=== PATIENT | female | born 1930 | race African-American/Black ===

== ENCOUNTER 2021-11-01 10:31 | Inpatient (IN) ==
[2021-11-01] MEDS ORDERED: SODIUM CHLORIDE 0.9% 500 ML IV STA ×2 (11:34→14:00)
[2021-11-01 11:52] LABS: PT Patient Result 11.4 SECS (10.5-12.0)
[2021-11-01 11:54] LABS: Basophils % 0.1 % (0.0-0.8); Eosinophils # 0.2 10*3/uL (0.0-0.87); Eosinophils % 0.4 % (0.00-10.9); Hematocrit 37.7 VOL% (35.7-47.0); Hemoglobin 12.1 GM/DL (12.0-16.0); Immature Granulocytes % 13.5 %; Lymphocytes % 1.7 % (21.3-54.2); Mean Corpuscular HGB Conc 32.1 GM/DL (32-36); Monocytes # 1.1 10*3/uL (0.11-0.8); Monocytes % 1.9 % (1.7-12.7); Neutrophils % 82.4 % (38.7-73.9); Platelet Count 106 T/CUMM (130-400); Red Cell Distribution Width 16.3 % (9.3-17.3)
[2021-11-01 11:57] LABS: Mean Platelet Volume 13.3 FL (9.6-12.0)
[2021-11-01 12:00] LABS: Albumin 2.2 G/DL (3.4-5.0); Bilirubin,Total 2.4 MG/DL (0.20-1.00); Calcium 10.6 MG/DL (8.5-10.1); Osmolality,Calculated 323.7 MOS/KG (273-304); Potassium 4.5 MMOL/L (3.5-5.1); Total Protein 6.3 G/DL (6.4-8.2)
[2021-11-01 12:08] LABS: Arterial Base Excess iSTAT 3 MMOL/L (-2.5-2.5); Arterial Bicarbonate iSTAT 28.3 MMOL/L (20-26); Arterial O2 Saturation iSTAT 100 % (95-100); Arterial PCO2 iSTAT 47 MM HG (35-48); Arterial PO2 iSTAT 221 MM HG (80-95); Arterial Total CO2 iSTAT 30 MMO/L (23-27)
[2021-11-01] MEDS ORDERED: VANCOMYCIN INJ 1,000 MG in SODIUM CHLORIDE 0.9% 250 ML IV STA (12:29)
[2021-11-01] MEDS ORDERED: PIPERACILLIN/TAZOBACTAM 3,375 MG in SODIUM CHLORIDE 0.9% 100 ML IV STA (12:29)
[2021-11-01 12:34] LABS: Band Neutrophils 5 % (0-10); Burr Cells Slight; Hypochromia Slight; Lymphocytes 1 % (20-55); Metamyelocytes 3 %; Target Cells Slight; Total Cells Counted 100
[2021-11-01 12:35] LABS: Microcytosis Slight; Platelet Estimate Decreased; Schistocytes Slight
[2021-11-01] MEDS ORDERED: ETOMIDATE 20 MG/10 ML VIAL IV ONE (12:46)
[2021-11-01] MEDS ORDERED: ROCURONIUM 100 MG/10 ML VIAL IV ONE (12:47)
[2021-11-01] MEDS ORDERED: ROCURONIUM 100 MG/10 ML VIAL IV STA (12:49)
[2021-11-01] MEDS ORDERED: ETOMIDATE 20 MG/10 ML VIAL IV STA (12:49)
[2021-11-01 13:45] LABS: Bacteria,Urine Many /HPF (Few); Mucus,Urine Occasional /LPF (Occasional); RBC,Urine 9 /HPF (0-4)
[2021-11-01 13:49] LABS: Glucose,Urine (UA) Negative (Negative); Ketones,Urine Negative (Negative); Nitrite,Urine Negative (Negative); Protein,Urine 100 mg/dL (Negative); Urine Appearance Clear (Clear); Urine Color Yellow (Yellow); Urine pH 5.5 (4.5-8.0)
[2021-11-01 13:50] LABS: Bilirubin,Urine Negative (Negative); Blood, Urine Large mg/dL (Negative)
[2021-11-01] MEDS ORDERED: NOREPINEPHRINE 8 MG in SODIUM CHLORIDE 0.9% 242 ML IV PRN (14:00)
[2021-11-01] MEDS ORDERED: MIDAZOLAM 100 MG in SODIUM CHLORIDE 0.9% 80 ML IV PRN (14:00)
[2021-11-01] MEDS ORDERED: NOREPINEPHRINE 4 MG/4 ML VIAL IV ONE ×2 (14:01→16:21)
[2021-11-01] MEDS ORDERED: ALBUTEROL 2.5 MG/3 ML NEB RESP TX PRN (14:04)
[2021-11-01] MEDS ORDERED: AZITHROMYCIN INJ 500 MG in SODIUM CHLORIDE 0.9% 250 ML IV ONE (14:06)
[2021-11-01] MEDS ORDERED: MORPHINE 2 MG/1 ML SYRINGE IV PRN (14:06)
[2021-11-01] MEDS ORDERED: ONDANSETRON 4 MG/2 ML VIAL IV PRN (14:06)
[2021-11-01 14:55] LABS: Ferritin 563.7 ng/mL (8-252)
[2021-11-01] MEDS: ENOXAPARIN 30 MG/0.3 ML SYRINGE SUBCUT SCH (16:26)
[2021-11-01] MEDS: SODIUM CHLORIDE 0.9% 1,000 ML IV SCH ×2 (16:28→23:59)
[2021-11-01] MEDS: DEXAMETHASONE 4 MG/1 ML VIAL IV SCH (16:29)
[2021-11-01] MEDS ORDERED: GLUCAGON 1 MG VIAL IM PRN (16:50)
[2021-11-01] MEDS: DEXTROSE 10% 250 ML BAG IV PRN ×2 (18:23→19:00)
[2021-11-01] MEDS: INSULIN REGULAR 100 UNIT/ML SUBCUT SCH ×2 (18:23→23:52)
[2021-11-01] MEDS ORDERED: DEXTROSE 50% 25 GM/50 ML VIAL IV PRN (18:42)
[2021-11-01] MEDS: MEROPENEM 500 MG in SODIUM CHLORIDE 0.9% 100 ML IV SCH (20:43)
[2021-11-01] MEDS: ASCORBIC ACID 500 MG TABLET PO SCH (20:57)
[2021-11-01] MEDS ORDERED: FAMOTIDINE 20 MG TABLET PO SCH (21:00)
[2021-11-02 04:40] LABS: Arterial Base Excess iSTAT -3 MMOL/L (-2.5-2.5); Arterial Bicarbonate iSTAT 22.8 MMOL/L (20-26); Arterial O2 Saturation iSTAT 98 % (95-100); Arterial PCO2 iSTAT 41 MM HG (35-48); Arterial PO2 iSTAT 106 MM HG (80-95); Arterial Total CO2 iSTAT 24 MMO/L (23-27); Arterial pH iSTAT 7.358 (7.35-7.45)
[2021-11-02] MEDS: INSULIN REGULAR 100 UNIT/ML SUBCUT SCH ×3 (05:18→18:07)
[2021-11-02] MEDS: SODIUM CHLORIDE 0.9% 1,000 ML IV SCH ×2 (06:35→09:31)
[2021-11-02 07:22] LABS: Basophils % 0.1 % (0.0-0.8); Eosinophils # 0.2 10*3/uL (0.0-0.87); Eosinophils % 0.3 % (0.00-10.9); Hematocrit 30.9 VOL% (35.7-47.0); Hemoglobin 10.4 GM/DL (12.0-16.0); Immature Granulocytes % 7.9 %; Immature Granulocytes Absolute 3.63 #; Lymphocytes # 0.8 10*3/uL (1.4-4.0); Lymphocytes % 1.7 % (21.3-54.2); Mean Corpuscular HGB Conc 33.7 GM/DL (32-36); Mean Corpuscular Volume 79.8 FL (87-102); Monocytes % 2.2 % (1.7-12.7); Neutrophils % 87.8 % (38.7-73.9); Platelet Count 85 T/CUMM (130-400); Red Blood Count 3.87 MC/CUMM (3.8-5.5); Red Cell Distribution Width 16.3 % (9.3-17.3)
[2021-11-02 07:26] LABS: White Blood Count 46.2 T/CUMM (4-12)
[2021-11-02 07:39] LABS: Band Neutrophils 2 % (0-10); Hypochromia Slight; Microcytosis Slight; Platelet Estimate Decreased; Total Cells Counted 100
[2021-11-02 07:49] LABS: Osmolality,Calculated 330.8 MOS/KG (273-304)
[2021-11-02] MEDS: DEXAMETHASONE 4 MG/1 ML VIAL IV SCH (08:03)
[2021-11-02] MEDS: FAMOTIDINE 20 MG TABLET PER TUBE SCH (08:08)
[2021-11-02] MEDS: AZITHROMYCIN 250 MG TABLET PO SCH (08:08)
[2021-11-02] MEDS: ASCORBIC ACID 500 MG TABLET PO SCH ×2 (08:08→20:29)
[2021-11-02 08:35] LABS: Sedimentation Rate-Westergren 45 MM/HR (0-30)
[2021-11-02] MEDS: DEXTROSE 5% NACL 0.45% 1,000 ML IV SCH ×3 (11:14→19:14)
[2021-11-02] MEDS: ENOXAPARIN 30 MG/0.3 ML SYRINGE SUBCUT SCH (14:45)
[2021-11-02] MEDS ORDERED: hydrALAZINE 20 MG/1 ML VIAL IV PRN (14:56)
[2021-11-02] MEDS: MEROPENEM 500 MG in SODIUM CHLORIDE 0.9% 100 ML IV SCH (19:39)
[2021-11-03] MEDS: INSULIN REGULAR 100 UNIT/ML SUBCUT SCH ×5 (00:25→23:25)
[2021-11-03] MEDS: DEXTROSE 5% NACL 0.45% 1,000 ML IV SCH ×3 (03:25→19:50)
[2021-11-03 03:32] LABS: ABG Base Excess -1.8 MMOL/L (-2.5-2.5); ABG HCO3 22.9 MMOL/L (20-26); ABG Oxygen Saturation 98.8 % (95-100); ABG PCO2 44.6 MM HG (35-48); ABG TCO2 21.8 MMOL/L (23-27)
[2021-11-03 05:41] LABS: Calcium 8.5 MG/DL (8.5-10.1); Osmolality,Calculated 314.3 MOS/KG (273-304); Potassium 4.8 MMOL/L (3.5-5.1)
[2021-11-03 06:25] LABS: Basophils # 0.1 10*3/uL (0.0-0.2); Basophils % 0.3 % (0.0-0.8); Hematocrit 33.1 VOL% (35.7-47.0); Hemoglobin 10.5 GM/DL (12.0-16.0); Immature Granulocytes % 3.3 %; Immature Granulocytes Absolute 1.33 #; Lymphocytes # 1.2 10*3/uL (1.4-4.0); Lymphocytes % 2.9 % (21.3-54.2); Mean Corpuscular HGB Conc 31.7 GM/DL (32-36); Mean Corpuscular Volume 82.5 FL (87-102); Monocytes # 1.8 10*3/uL (0.11-0.8); Monocytes % 4.3 % (1.7-12.7); Neutrophils % 89.2 % (38.7-73.9); Platelet Count 91 T/CUMM (130-400); Red Blood Count 4.01 MC/CUMM (3.8-5.5); Red Cell Distribution Width 17.1 % (9.3-17.3)
[2021-11-03 06:31] LABS: White Blood Count 40.3 T/CUMM (4-12)
[2021-11-03 06:46] LABS: Band Neutrophils 1 % (0-10); Lymphocytes 3 % (20-55); Platelet Estimate Decreased; Total Cells Counted 100
[2021-11-03 06:47] LABS: Hypochromia Slight; Microcytosis Slight
[2021-11-03] MEDS: DEXAMETHASONE 4 MG/1 ML VIAL IV SCH (08:13)
[2021-11-03] MEDS: AZITHROMYCIN 250 MG TABLET PO SCH (08:14)
[2021-11-03] MEDS: FAMOTIDINE 20 MG TABLET PER TUBE SCH (08:14)
[2021-11-03] MEDS: ASCORBIC ACID 500 MG TABLET PO SCH ×2 (08:14→20:48)
[2021-11-03] MEDS: INSULIN GLARGINE 100 UNIT/ML SUBCUT SCH (08:22)
[2021-11-03 10:29] LABS: White Blood Count 57.9 T/CUMM (4-12)
[2021-11-03] MEDS: ENOXAPARIN 30 MG/0.3 ML SYRINGE SUBCUT SCH (16:25)
[2021-11-03] MEDS: MEROPENEM 500 MG in SODIUM CHLORIDE 0.9% 100 ML IV SCH (20:48)
[2021-11-04 04:49] LABS: ABG HCO3 24.4 MMOL/L (20-26); ABG PCO2 41.8 MM HG (35-48); ABG PH 7.385 (7.35-7.45); ABG TCO2 22.7 MMOL/L (23-27)
[2021-11-04 04:50] LABS: Basophils # 0.1 10*3/uL (0.0-0.2); Basophils % 0.4 % (0.0-0.8); Hematocrit 37.1 VOL% (35.7-47.0); Hemoglobin 11.7 GM/DL (12.0-16.0); Immature Granulocytes % 5.8 %; Immature Granulocytes Absolute 1.91 #; Lymphocytes # 1.8 10*3/uL (1.4-4.0); Lymphocytes % 5.4 % (21.3-54.2); Mean Corpuscular HGB Conc 31.5 GM/DL (32-36); Mean Corpuscular Volume 83.4 FL (87-102); Monocytes # 1.8 10*3/uL (0.11-0.8); Monocytes % 5.3 % (1.7-12.7); NRBC # 0.02 10*3/uL; Neutrophils % 83.1 % (38.7-73.9); Platelet Count 60 T/CUMM (130-400); Red Blood Count 4.45 MC/CUMM (3.8-5.5); Red Cell Distribution Width 17.2 % (9.3-17.3); White Blood Count 32.9 T/CUMM (4-12)
[2021-11-04 05:09] LABS: Calcium 8.8 MG/DL (8.5-10.1); Osmolality,Calculated 301.5 MOS/KG (273-304); Potassium 4.8 MMOL/L (3.5-5.1)
[2021-11-04] MEDS: INSULIN REGULAR 100 UNIT/ML SUBCUT SCH ×4 (05:13→23:52)
[2021-11-04 05:15] LABS: Band Neutrophils 2 % (0-10); Hypochromia Slight; Lymphocytes 6 % (20-55); Microcytosis Slight; Platelet Estimate Decreased; Total Cells Counted 100
[2021-11-04] MEDS: DEXTROSE 5% NACL 0.45% 1,000 ML IV SCH ×2 (05:22→15:16)
[2021-11-04] MEDS: FAMOTIDINE 20 MG TABLET PER TUBE SCH (08:13)
[2021-11-04] MEDS: ASCORBIC ACID 500 MG TABLET PO SCH ×2 (08:13→20:22)
[2021-11-04] MEDS: DEXAMETHASONE 4 MG/1 ML VIAL IV SCH (08:13)
[2021-11-04] MEDS: INSULIN GLARGINE 100 UNIT/ML SUBCUT SCH (08:13)
[2021-11-04] MEDS: AZITHROMYCIN 250 MG TABLET PO SCH (08:13)
[2021-11-04 10:26] LABS: Arterial Base Excess iSTAT 0 MMOL/L (-2.5-2.5); Arterial Bicarbonate iSTAT 25.2 MMOL/L (20-26); Arterial O2 Saturation iSTAT 98 % (95-100); Arterial PCO2 iSTAT 44 MM HG (35-48); Arterial PO2 iSTAT 111 MM HG (80-95); Arterial Total CO2 iSTAT 27 MMO/L (23-27); Arterial pH iSTAT 7.365 (7.35-7.45)
[2021-11-04] MEDS: cefTRIAXone 1,000 MG in SODIUM CHLORIDE 0.9% 100 ML IV SCH (15:16)
[2021-11-05 04:31] LABS: Arterial Base Excess iSTAT 2 MMOL/L (-2.5-2.5); Arterial Bicarbonate iSTAT 26.3 MMOL/L (20-26); Arterial O2 Saturation iSTAT 94 % (95-100); Arterial PCO2 iSTAT 38 MM HG (35-48); Arterial PO2 iSTAT 69 MM HG (80-95); Arterial Total CO2 iSTAT 27 MMO/L (23-27); Arterial pH iSTAT 7.449 (7.35-7.45)
[2021-11-05] MEDS: DEXTROSE 5% NACL 0.45% 1,000 ML IV SCH ×2 (04:40→23:01)
[2021-11-05 06:09] LABS: Basophils # 0.1 10*3/uL (0.0-0.2); Basophils % 0.4 % (0.0-0.8); Eosinophils % 0.1 % (0.00-10.9); Hemoglobin 10.2 GM/DL (12.0-16.0); Immature Granulocytes % 8.5 %; Immature Granulocytes Absolute 2.15 #; Lymphocytes # 1.8 10*3/uL (1.4-4.0); Lymphocytes % 6.9 % (21.3-54.2); Mean Corpuscular HGB Conc 32.9 GM/DL (32-36); Mean Corpuscular Volume 80.3 FL (87-102); Mean Platelet Volume 12.7 FL (9.6-12.0); Monocytes # 1.5 10*3/uL (0.11-0.8); Neutrophils % 78.1 % (38.7-73.9); Platelet Count 133 T/CUMM (130-400); Red Blood Count 3.86 MC/CUMM (3.8-5.5); Red Cell Distribution Width 16.4 % (9.3-17.3); White Blood Count 25.4 T/CUMM (4-12)
[2021-11-05] MEDS: INSULIN REGULAR 100 UNIT/ML SUBCUT SCH ×3 (06:18→17:16)
[2021-11-05 06:24] LABS: Calcium 9.9 MG/DL (8.5-10.1); Osmolality,Calculated 301.8 MOS/KG (273-304); Potassium 3.8 MMOL/L (3.5-5.1)
[2021-11-05 06:57] LABS: Band Neutrophils 3 % (0-10); Hypochromia 1+; Lymphocytes 8 % (20-55); Microcytosis 1+; Total Cells Counted 100
[2021-11-05 06:58] LABS: Platelet Estimate Adequate
[2021-11-05] MEDS: FAMOTIDINE 20 MG TABLET PER TUBE SCH (08:42)
[2021-11-05] MEDS: ASCORBIC ACID 500 MG TABLET PO SCH ×2 (08:42→21:19)
[2021-11-05] MEDS: DEXAMETHASONE 4 MG/1 ML VIAL IV SCH (08:42)
[2021-11-05] MEDS: INSULIN GLARGINE 100 UNIT/ML SUBCUT SCH (08:43)
[2021-11-05] MEDS: AZITHROMYCIN 250 MG TABLET PO SCH (08:43)
[2021-11-05] MEDS: atenoloL 50 MG TABLET PO SCH (10:41)
[2021-11-05] MEDS: cefTRIAXone 1,000 MG in SODIUM CHLORIDE 0.9% 100 ML IV SCH (14:48)
[2021-11-05] MEDS: ENOXAPARIN 30 MG/0.3 ML SYRINGE SUBCUT SCH (14:49)
[2021-11-05] MEDS ORDERED: POTASSIUM PHOSPHATE 15 MMOL in SODIUM CHLORIDE 0.9% 100 ML IV ONE (17:00)
[2021-11-06] MEDS: INSULIN REGULAR 100 UNIT/ML SUBCUT SCH ×4 (01:01→18:34)
[2021-11-06 04:39] LABS: Basophils # 0.1 10*3/uL (0.0-0.2); Basophils % 0.4 % (0.0-0.8); Hematocrit 32.8 VOL% (35.7-47.0); Immature Granulocytes % 6.7 %; Lymphocytes # 1.6 10*3/uL (1.4-4.0); Lymphocytes % 5.7 % (21.3-54.2); Mean Corpuscular HGB Conc 33.5 GM/DL (32-36); Mean Platelet Volume 12.1 FL (9.6-12.0); Monocytes # 1.6 10*3/uL (0.11-0.8); Monocytes % 5.5 % (1.7-12.7); Neutrophils % 81.7 % (38.7-73.9); Platelet Count 205 T/CUMM (130-400); Red Blood Count 4.15 MC/CUMM (3.8-5.5); Red Cell Distribution Width 15.6 % (9.3-17.3); White Blood Count 28.4 T/CUMM (4-12)
[2021-11-06 04:54] LABS: Calcium 9.9 MG/DL (8.5-10.1); Osmolality,Calculated 300.8 MOS/KG (273-304); Potassium 4.4 MMOL/L (3.5-5.1)
[2021-11-06 05:09] LABS: Lymphocytes 6 % (20-55); Microcytosis Slight; Platelet Estimate Normal; Total Cells Counted 100
[2021-11-06] MEDS: ASCORBIC ACID 500 MG TABLET PO SCH ×2 (08:46→21:21)
[2021-11-06] MEDS: INSULIN GLARGINE 100 UNIT/ML SUBCUT SCH (08:46)
[2021-11-06] MEDS: atenoloL 50 MG TABLET PO SCH (08:46)
[2021-11-06] MEDS: FAMOTIDINE 20 MG TABLET PER TUBE SCH (08:47)
[2021-11-06] MEDS: DEXAMETHASONE 4 MG/1 ML VIAL IV SCH (08:48)
[2021-11-06] MEDS ORDERED: MAGNESIUM SULF RIDER 2 GM/50 ML PREMIX IV ONE (09:52)
[2021-11-06] MEDS: ACETAMINOPHEN 325 MG TABLET PO PRN (11:31)
[2021-11-06] MEDS: cefTRIAXone 1,000 MG in SODIUM CHLORIDE 0.9% 100 ML IV SCH (14:41)
[2021-11-06] MEDS: ENOXAPARIN 30 MG/0.3 ML SYRINGE SUBCUT SCH (14:42)
[2021-11-07] MEDS: INSULIN REGULAR 100 UNIT/ML SUBCUT SCH ×5 (00:39→23:55)
[2021-11-07] MEDS: DEXAMETHASONE 4 MG/1 ML VIAL IV SCH (08:25)
[2021-11-07] MEDS: FAMOTIDINE 20 MG TABLET PER TUBE SCH (08:25)
[2021-11-07] MEDS: INSULIN GLARGINE 100 UNIT/ML SUBCUT SCH (08:25)
[2021-11-07] MEDS: atenoloL 50 MG TABLET PO SCH (08:25)
[2021-11-07] MEDS: ASCORBIC ACID 500 MG TABLET PO SCH ×2 (08:25→20:06)
[2021-11-07] MEDS ORDERED: FUROSEMIDE 40 MG/4 ML VIAL IV ONE (12:23)
[2021-11-07] MEDS: ENOXAPARIN 30 MG/0.3 ML SYRINGE SUBCUT SCH (15:22)
[2021-11-07] MEDS: cefTRIAXone 1,000 MG in SODIUM CHLORIDE 0.9% 100 ML IV SCH (15:22)
[2021-11-08 04:20] LABS: Basophils % 0.1 % (0.0-0.8); Eosinophils % 0.1 % (0.00-10.9); Hematocrit 30.4 VOL% (35.7-47.0); Hemoglobin 9.8 GM/DL (12.0-16.0); Immature Granulocytes % 4.8 %; Immature Granulocytes Absolute 1.03 #; Lymphocytes % 4.8 % (21.3-54.2); Mean Corpuscular HGB Conc 32.2 GM/DL (32-36); Mean Corpuscular Volume 80.6 FL (87-102); Mean Platelet Volume 11.5 FL (9.6-12.0); Monocytes # 0.8 10*3/uL (0.11-0.8); Monocytes % 3.9 % (1.7-12.7); Neutrophils % 86.3 % (38.7-73.9); Platelet Count 261 T/CUMM (130-400); Red Blood Count 3.77 MC/CUMM (3.8-5.5); Red Cell Distribution Width 15.9 % (9.3-17.3); White Blood Count 21.5 T/CUMM (4-12)
[2021-11-08 04:43] LABS: Albumin 1.8 G/DL (3.4-5.0); Bilirubin,Total 0.4 MG/DL (0.20-1.00); Calcium 9.5 MG/DL (8.5-10.1); Osmolality,Calculated 310.3 MOS/KG (273-304); Potassium 5.5 MMOL/L (3.5-5.1)
[2021-11-08 04:55] LABS: Anisocytosis 1+; Band Neutrophils 3 % (0-10); Lymphocytes 6 % (20-55); Macrocytosis 1+; Platelet Estimate Normal; Total Cells Counted 100
[2021-11-08] MEDS: INSULIN REGULAR 100 UNIT/ML SUBCUT SCH ×3 (05:15→18:08)
[2021-11-08 06:42] LABS: Arterial Base Excess iSTAT 1 MMOL/L (-2.5-2.5); Arterial Bicarbonate iSTAT 25.8 MMOL/L (20-26); Arterial O2 Saturation iSTAT 95 % (95-100); Arterial PCO2 iSTAT 41 MM HG (35-48); Arterial PO2 iSTAT 74 MM HG (80-95); Arterial Total CO2 iSTAT 27 MMO/L (23-27); Arterial pH iSTAT 7.412 (7.35-7.45)
[2021-11-08] MEDS ORDERED: LACTATED RINGERS 1,000 ML IV SCH (08:30)
[2021-11-08] MEDS: DORNASE ALFA 2.5 MG/2.5 ML VIAL RESP TX SCH ×2 (09:15→19:26)
[2021-11-08] MEDS ORDERED: POLYETHYLENE GLYCOL POWDER 17 GM PACK PO PRN (09:31)
[2021-11-08] MEDS: DEXAMETHASONE 4 MG/1 ML VIAL IV SCH (10:34)
[2021-11-08] MEDS: FAMOTIDINE 20 MG TABLET PER TUBE SCH (10:35)
[2021-11-08] MEDS: INSULIN GLARGINE 100 UNIT/ML SUBCUT SCH (10:35)
[2021-11-08] MEDS: LACTULOSE 20 GM/30 ML UDCUP PO PRN (10:36)
[2021-11-08] MEDS: atenoloL 50 MG TABLET PO SCH (10:36)
[2021-11-08] MEDS: ASCORBIC ACID 500 MG TABLET PO SCH ×2 (10:36→21:12)
[2021-11-08] MEDS: cefTRIAXone 2,000 MG in SODIUM CHLORIDE 0.9% 100 ML IV SCH (10:57)
[2021-11-08] MEDS: SODIUM CHLORIDE 0.45% 1,000 ML IV SCH ×3 (11:22→22:00)
[2021-11-08] MEDS: APIXABAN 5 MG TABLET PO SCH (21:13)
[2021-11-09] MEDS: INSULIN REGULAR 100 UNIT/ML SUBCUT SCH ×5 (00:58→23:42)
[2021-11-09] MEDS: SODIUM CHLORIDE 0.45% 1,000 ML IV SCH ×3 (05:46→18:48)
[2021-11-09 06:26] LABS: Basophils % 0.1 % (0.0-0.8); Eosinophils # 0.1 10*3/uL (0.0-0.87); Eosinophils % 0.4 % (0.00-10.9); Hematocrit 27.8 VOL% (35.7-47.0); Hemoglobin 8.7 GM/DL (12.0-16.0); Immature Granulocytes % 2.6 %; Immature Granulocytes Absolute 0.53 #; Lymphocytes # 1.2 10*3/uL (1.4-4.0); Mean Corpuscular HGB Conc 31.3 GM/DL (32-36); Mean Corpuscular Volume 82.7 FL (87-102); Mean Platelet Volume 11.6 FL (9.6-12.0); Monocytes # 1.2 10*3/uL (0.11-0.8); Monocytes % 5.9 % (1.7-12.7); Platelet Count 271 T/CUMM (130-400); Red Blood Count 3.36 MC/CUMM (3.8-5.5); Red Cell Distribution Width 16.1 % (9.3-17.3); White Blood Count 20.2 T/CUMM (4-12)
[2021-11-09 06:43] LABS: Albumin 1.6 G/DL (3.4-5.0); Bilirubin,Total 0.4 MG/DL (0.20-1.00); Calcium 8.8 MG/DL (8.5-10.1); Osmolality,Calculated 309.5 MOS/KG (273-304); Total Protein 5.5 G/DL (6.4-8.2)
[2021-11-09 06:47] LABS: Lymphocytes 3 % (20-55); Microcytosis 1+; Myelocytes 1 %; Total Cells Counted 100
[2021-11-09 06:48] LABS: Hypochromia Slight; Platelet Estimate Normal
[2021-11-09] MEDS ORDERED: INSULIN REGULAR 10 UNIT, CALCIUM GLUCONATE 1,000 MG in DEXTROSE 10% 250 ML IV ONE ×2 (06:51→20:00)
[2021-11-09] MEDS: DORNASE ALFA 2.5 MG/2.5 ML VIAL RESP TX SCH ×2 (07:43→19:30)
[2021-11-09] MEDS: cefTRIAXone 2,000 MG in SODIUM CHLORIDE 0.9% 100 ML IV SCH (09:11)
[2021-11-09] MEDS: DEXAMETHASONE 4 MG/1 ML VIAL IV SCH (09:53)
[2021-11-09] MEDS: ASCORBIC ACID 500 MG TABLET PO SCH ×2 (09:54→19:59)
[2021-11-09] MEDS: INSULIN GLARGINE 100 UNIT/ML SUBCUT SCH (09:54)
[2021-11-09] MEDS: FAMOTIDINE 20 MG TABLET PER TUBE SCH (09:54)
[2021-11-09] MEDS: APIXABAN 5 MG TABLET PO SCH ×2 (09:54→19:59)
[2021-11-09] MEDS: atenoloL 50 MG TABLET PO SCH (09:54)
[2021-11-09 14:58] LABS: Albumin 1.7 G/DL (3.4-5.0); Bilirubin,Total 0.4 MG/DL (0.20-1.00); Osmolality,Calculated 307.7 MOS/KG (273-304)
[2021-11-09 15:00] LABS: Potassium 6.6 MMOL/L (3.5-5.1)
[2021-11-09] MEDS ORDERED: SODIUM POLYSTYRENE SULFATE 15 GM/60 ML BOTTLE NG ONE (15:30)
[2021-11-09] MEDS ORDERED: SODIUM POLYSTYRENE SULFATE 15 GM/60 ML BOTTLE PO ONE (17:45)
[2021-11-09] MEDS: INSULIN REGULAR 10 UNIT, CALCIUM GLUCONATE 1,000 MG in DEXTROSE 10% 250 ML IV ONE ×2 (18:48→19:54)
[2021-11-09] MEDS ORDERED: SODIUM ZIRCONIUM CYCLOSILICATE 10 GM PACK PO ONE (19:45)
[2021-11-09] MEDS: ACETAMINOPHEN 325 MG TABLET PO PRN (19:59)
[2021-11-09] MEDS: LACTULOSE 20 GM/30 ML UDCUP PO PRN (20:00)
[2021-11-10 04:46] LABS: Basophils % 0.1 % (0.0-0.8); Eosinophils % 0.2 % (0.00-10.9); Hematocrit 26.9 VOL% (35.7-47.0); Hemoglobin 8.6 GM/DL (12.0-16.0); Immature Granulocytes % 1.6 %; Lymphocytes % 5.6 % (21.3-54.2); Mean Corpuscular Volume 82.3 FL (87-102); Mean Platelet Volume 11.4 FL (9.6-12.0); Monocytes % 5.5 % (1.7-12.7); Platelet Count 293 T/CUMM (130-400); Red Blood Count 3.27 MC/CUMM (3.8-5.5); Red Cell Distribution Width 15.9 % (9.3-17.3); White Blood Count 18.5 T/CUMM (4-12)
[2021-11-10 05:07] LABS: Alanine Aminotransferase 159 U/L (13-56); Albumin 1.6 G/DL (3.4-5.0); Alkaline Phosphatase 151 U/L (45-117); Aspartate Amino Transferase 124 U/L (0-37); Bilirubin,Total < 0.39 MG/DL (0.20-1.00); Blood Urea Nitrogen 105 MG/DL (7-18); Calcium 8.7 MG/DL (8.5-10.1); Carbon Dioxide 22 MMOL/L (21-32); Chloride 109 MMOL/L (98-107); Glucose 106 MG/DL (74-106); Osmolality,Calculated 315.1 MOS/KG (273-304); Potassium 4.5 MMOL/L (3.5-5.1); Sodium 142 MMOL/L (136-145); Total Protein 5.4 G/DL (6.4-8.2)
[2021-11-10 05:16] LABS: Phosphorous 8.7 MG/DL (2.5-4.9); Uric Acid 5.9 MG/DL (2.6-6.0)
[2021-11-10] MEDS: SODIUM CHLORIDE 0.45% 1,000 ML IV SCH (05:32)
[2021-11-10] MEDS: INSULIN REGULAR 100 UNIT/ML SUBCUT SCH ×3 (05:47→19:23)
[2021-11-10] MEDS: DORNASE ALFA 2.5 MG/2.5 ML VIAL RESP TX SCH (07:20)
[2021-11-10] MEDS: cefTRIAXone 2,000 MG in SODIUM CHLORIDE 0.9% 100 ML IV SCH (10:51)
[2021-11-10] MEDS: DEXAMETHASONE 4 MG/1 ML VIAL IV SCH (10:52)
[2021-11-10] MEDS: FAMOTIDINE 20 MG TABLET PER TUBE SCH (10:53)
[2021-11-10] MEDS: atenoloL 50 MG TABLET PO SCH (10:53)
[2021-11-10] MEDS: APIXABAN 5 MG TABLET PO SCH (10:53)
[2021-11-10] MEDS: INSULIN GLARGINE 100 UNIT/ML SUBCUT SCH (10:53)
[2021-11-10] MEDS: ASCORBIC ACID 500 MG TABLET PO SCH ×2 (10:54→21:25)
[2021-11-10] MEDS ORDERED: ALBUTEROL INHALER 18 GM INH SCH (19:00)
[2021-11-10] MEDS ORDERED: ENOXAPARIN 30 MG/0.3 ML SYRINGE SUBCUT SCH (21:00)
[2021-11-11 04:41] LABS: Basophils % 0.1 % (0.0-0.8); Eosinophils % 0.1 % (0.00-10.9); Hematocrit 25.8 VOL% (35.7-47.0); Hemoglobin 8.1 GM/DL (12.0-16.0); Immature Granulocytes % 1.7 %; Immature Granulocytes Absolute 0.23 #; Lymphocytes # 0.9 10*3/uL (1.4-4.0); Lymphocytes % 6.9 % (21.3-54.2); Mean Corpuscular HGB Conc 31.4 GM/DL (32-36); Mean Corpuscular Volume 83.5 FL (87-102); Mean Platelet Volume 11.8 FL (9.6-12.0); Monocytes % 7.5 % (1.7-12.7); Neutrophils % 83.7 % (38.7-73.9); Platelet Count 236 T/CUMM (130-400); Red Blood Count 3.09 MC/CUMM (3.8-5.5); Red Cell Distribution Width 15.9 % (9.3-17.3); White Blood Count 13.6 T/CUMM (4-12)
[2021-11-11 05:00] LABS: Phosphorous 4.2 MG/DL (2.5-4.9)
[2021-11-11 05:12] LABS: Alanine Aminotransferase 110 U/L (13-56); Albumin 1.6 G/DL (3.4-5.0); Alkaline Phosphatase 131 U/L (45-117); Aspartate Amino Transferase 62 U/L (0-37); Bilirubin,Total < 0.39 MG/DL (0.20-1.00); Blood Urea Nitrogen 57 MG/DL (7-18); Calcium 8.5 MG/DL (8.5-10.1); Carbon Dioxide 29 MMOL/L (21-32); Chloride 115 MMOL/L (98-107); Glucose 91 MG/DL (74-106); Osmolality,Calculated 311.1 MOS/KG (273-304); Potassium 3.1 MMOL/L (3.5-5.1); Sodium 149 MMOL/L (136-145); Total Protein 5.2 G/DL (6.4-8.2)
[2021-11-11 05:46] LABS: Hepatitis B Core IgM Quant 0.08 Index; Hepatitis B Surface Ag Quant < 0.10 Index; Hepatitis B Surface Ag Result Non-Reactive (NonReactive); Hepatitis C Virus Ab Quant 0.06 Index; Hepatitis C Virus Ab Result Non-Reactive (NonReactive)
[2021-11-11] MEDS: INSULIN REGULAR 100 UNIT/ML SUBCUT SCH ×4 (06:00→17:19)
[2021-11-11] MEDS: cefTRIAXone 2,000 MG in SODIUM CHLORIDE 0.9% 100 ML IV SCH (10:32)
[2021-11-11] MEDS: FAMOTIDINE 20 MG TABLET PER TUBE SCH (10:32)
[2021-11-11] MEDS: ASCORBIC ACID 500 MG TABLET PO SCH (10:32)
[2021-11-11] MEDS: atenoloL 50 MG TABLET PO SCH (10:32)
[2021-11-11] MEDS: INSULIN GLARGINE 100 UNIT/ML SUBCUT SCH (10:33)
[2021-11-11 13:57] LABS: Myeloperoxidase Antibody < 0.2 U
[2021-11-11 16:08] VITALS: BP 107/72
[2021-11-12 12:16] LABS: Antinuclear Ab, S 0.3 U
== END 2021-11-11 18:52 | DRG 871 ==
LOC: EDUNIT# → EDBD → N.ED 10:31 → N.EDINP 14:04 → SUATTDRO 14:04 → N.CC 16:43 → N.5E 11-09 12:27
PROVIDERS: ADMIT Family Medicine; ATTEND Emergency Medicine